=== PATIENT | female | born 1930 | race Caucasian/White ===

== ENCOUNTER 2016-08-12 09:07 | Day surgery (SDC) | payer MEDICARE, BC ==
[~2016-08-12 09:07] MED LIST: RINGERS SOLUTION,LACTATED 1,000 ML IV PRN; ceFAZolin SODIUM 1 GM VIAL IV PRN
[2016-08-12] MEDS ORDERED: BUPIVACAINE HCL 50 ML VIAL IJ ONE ×2 (11:00)
--- NOTE | 2016-08-12 11:22 | OR ---
Operative Report - Dictated Report Narrative: Date: 08/12/2016 Physician: Amos Archer M.D. Imposer: Antonio Yarbrough PA-C Preoperative diagnosis: Right carpal tunnel syndrome, right trigger thumb Postoperative diagnosis: Right carpal tunnel syndrome, right trigger thumb Procedure: Endoscopic right carpal tunnel release, right trigger thumb release Anesthesia: MAC plus local Complications: None Estimated blood loss: Minimal Tourniquet time: 13 Minutes at 250 mmHg Specimens: None Retained implants: None Drains: None Indications: Mrs. Landaverde Is a 66-year-old female who has been followed in my clinic with complaints of carpal tunnel syndrome and intermittent trigger thumb. Physical exam as well as diagnostic testing showed compression of the median nerve compatible with carpal tunnel syndrome. Kelly exam which also demonstrated a trigger fingering of the thumb. Conservative measures have failed including but not limited to activity modification, medications, and/or bracing. The risks, benefits, and alternatives were discussed in clinic. The risks being bleeding, infection, nerve, tendon, blood vessel injury, persistent pain, wound competitions, weakness, palm pain, need for additional procedures, and persistent symptoms. Consent was obtained in the clinic. Procedure: After marking the correct extremity in the preoperative holding area, a timeout was performed in the operating room. IV antibiotics consisting of Ancef were administered prior to the procedure. A well-padded tourniquet was applied to the operative upper arm. The arm was exsanguinated and the tourniquet was inflated to 250 mmHg. 0.5% Marcaine without epinephrine was infused into the projected portal sites. Using Loupe magnification, a transverse incision was made in the proximal wrist flexion crease just ulnar to the ulnar to the palmaris longus tendon or in line with approximately the ring finger. Blunt dissection and hemostasis with bipolar cautery was utilized down to the forearm fascia. The forearm fascia was split longitudinally just ulnar to the palmaris longus exposing the entry into the carpal tunnel. A Colby was placed under the transverse carpal ligament elevating the soft tissues under the dorsal aspect of the transverse carpal ligament. This was confirmed to be under the transverse carpal ligament based on the corrugated nature of the tissue. Once we had removed soft tissues from the transverse carpal ligament, a blunt trocar and cannula was introduced under the transverse carpal ligament exiting the palm through a niharika incision. The hand was then placed in a extension holding device and the camera was introduced into the cannula. A probe was utilized in order to ensure that all soft tissues were elevated off the dorsal aspect of the transverse carpal ligament and ensuring that all tissues were running transversely. No vascular or neurologic tissues were visualized. The push, followed by probe, followed by hook blades was utilized to transect the distal one half of the transverse carpal ligament. This allowed for ingress of fat. The camera was then placed distally looking proximally, and the proximal one half of the transverse carpal ligament was transected using the hook blade. This again allowed for ingress of fat. The probe blade was utilized in order to release any additional remaining fibers. Once it was felt that the transverse carpal ligament was completely transected, the blunt trocar was reintroduced into the trocar and removed in whole. A Ragnell was utilized in order to visualize the carpal tunnel ensuring that the transverse carpal ligament was completely released using a Colby. The distal forearm fascia was released ensuring that the median nerve was completely decompressed utilizing tenotomy scissors. Once it was felt that all the tissues overlying the median nerve were completely released, the wounds were thoroughly irrigated with saline which passed freely from the proximal to distal portal holes. 0.5% Marcaine without epinephrine was infused into the projected incision site at the palmar flexion crease over the metacarpal phalangeal joint in line with the digit. Using loupe magnification, a transverse incision in the appropriate palmar flexion crease in line with the digit. Blunt dissection was carried down through the subcutaneous tissues using bipolar cautery for hemostasis. Care was taken to protect the digital nerves. Staying midline along the flexor tendon, the A1 regan was identified. A niharika was made in the proximal edge of the A1 regan and tenotomies were utilized in order to completely transect the A1 regan. Care was to stay midline and avoid transection of the A2 regan. Soft tissues overlying the flexor tendon proximal to the A1 regan were also released ensuring that there were no other compressive structures contributing to the triggering. The finger was placed through range of motion and demonstrated no additional catching. The tendons were visualized and mobilized out of the wound, and did not demonstrate any gross pathology or masses that required debridement. The tendons were noted to be intact. Once was felt that we had decompressed the flexor tendons as they passed under the A1 regan, the tourniquet was removed. Once bleeding had resolved and there was no excessive bleeding, the wounds were closed with interrupted nylon. Xeroform, 4 x 4's, soft roll, and a well-padded dorsal short arm wrist splint was applied, and the patient was awoken and transferred to the postanesthesia care unit in stable condition. All sponge, needle, blade, and instrument counts were correct prior to closing the wounds. Additional 0.5% Marcaine without epinephrine was infused into the skin edges for pain control.
[2016-08-12 12:17] VITALS: BP 117/71
== END 2016-08-12 09:08 | disposition home or self-care (01) ==
LOC: AMB 09:07
PROVIDERS: ATTEND Orthopaedic Surgery
PROC: 01N54ZZ Release Median Nerve, Percutaneous Endoscopic Approach (ICD-10-PCS; principal; 2016-08-12 11:30)
PROC: 0LN70ZZ Release Right Hand Tendon, Open Approach (ICD-10-PCS; 2016-08-12 11:30)
DX: G56.01 Carpal tunnel syndrome, right upper limb (principal); M65.311 Trigger thumb, right thumb; I10 Essential (primary) hypertension; E78.5 Hyperlipidemia, unspecified; K21.9 Gastro-esophageal reflux disease without esophagitis; Z87.891 Personal history of nicotine dependence; Z68.30 Body mass index [BMI] 30.0-30.9, adult

== ENCOUNTER 2019-08-29 10:52 | Inpatient (IN) ==
[2019-08-29] MEDS ORDERED: hydrALAZINE HCL 20 MG/ML VIAL IV PRN (15:59)
[2019-08-29] MEDS: NORMAL SALINE 1,000 ML IV PRN (17:46)
[2019-08-29] MEDS: ONDANSETRON HCL/PF 2 MG/ML VIAL IV PRN (17:47)
[2019-08-30] MEDS: ONDANSETRON HCL/PF 2 MG/ML VIAL IV PRN ×3 (00:55→17:51)
[2019-08-30] MEDS: NORMAL SALINE 1,000 ML IV PRN ×3 (01:48→16:38)
[2019-08-30] MEDS ORDERED: MORPHINE SULFATE 2 MG/ML DISP.SYRIN IV PRN (06:13)
--- NOTE | 2019-08-30 11:06 | PN ---
Jimbo Note - Interim Date: 08/29/19 Time: 23:15 Narrative: 08/29/19 @ 2315 Patient is a direct admit from clinic today after she came to see Dr. Florian for a sick visit. Patient admitted for possible small bowel obstruction, agree with Dr. Florian's note and will be using his clinic visit note as my H&P for initial encounter. Orders are placed and will follow patient while she is here on the inpatient side. Patient seen in the hospital this evening and was stable, feeling better, and her abdominal pain/nausea had resolved. Otherwise I feel Dr. Florian's note was accurate and reflected my exam performed on patient.
[2019-08-30 18:31] LABS: Anion Gap 10.7 mmol/L (6.8-13.8); BUN/Creatinine Ratio 23.4 (9.0-21.6); Calcium * 8.7 mg/dL (7.9-10.9); Carbon Dioxide 24.9 mmol/L (24-32.6); Estimated Creat Clear 39.2; Potassium 3.6 mmol/L (3.4-4.6)
--- NOTE | 2019-08-30 21:37 | PN ---
Subjective - Date and Time Seen Date: 08/30/19 Time: 09:21 Subjective Narrative: Patient states that she feels much better today, no longer having any abdominal pain. NG tube put out roughly 500 mls overnight. Currently putting out minimal. Abdominal XR shows tube to be a the EG junction and may need to be advanced further since her output has decreased. She afebrile and her VSS since admission. Objective - Review of Systems Generalized/Overall Review: Denies: Chills, Fever, Malaise EENTM: Reports: No Symptoms Reported Respiratory: Denies: Cough, Shortness of Breath Cardiac: Denies: Chest Pain, Palpitations Abdominal: Denies: Nausea, Vomiting, Abdominal Pain Genitourinary Symptoms: Reports: No Symptoms Reported Musculoskeletal Complaints: Reports: No Symptoms Reported Skin: Reports: No Symptoms Reported - Vitals Vitals: Last Vital Signs Temp 36.8 C 08/30/19 21:18 Pulse 64 08/30/19 21:18 Resp 18 08/30/19 21:18 BP 129/63 08/30/19 21:18 Pulse Ox 96 08/30/19 21:18 - Abnormal Lab Findings Abnormal Lab Findings: Abnormal Lab Results 08/30/19 Range/Units 17:30 BUN/Creatinine Ratio 23.4 H (9.0-21.6) Random Glucose 133 H (70-110) mg/dL - Exam Constitutional: Present: Alert, Oriented x3, Cooperative, Well developed ENT Exam: Present: hearing grossly normal, other - NG tube placed Neck: Present: non-tender, full range of motion Respiratory: Present: lungs clear, normal breath sounds, no respiratory distress Cardiovascular/Chest: Present: regular rate, rhythm, no murmur Abdomen: Present: soft, nontender, nondistended, hypoactive Skin Exam: Present: normal color, warm/dry Appearance: Present: appropriate appearance, appropriate insight Eye contact: Present: cooperative, good eye contact Thoughts: Present: normal thought pattern, normal mood /affect Assessment/Plan Plan Narrative: 89 y/o female admitted for SBO who did well overnight without any acute events. She currently is comfortable and denies any abdominal pain. Her belly is soft and non distended. She currently has Ng tube placed, but is pulling out minimal content. Will advance the tube 4 cm and and aspirate to see if any return. If not, then will likely clamp the tube and encourage ambulation since she is so comfortable currently. If she starts passing gas then will likely advance her diet as tolerated. Will leave tube in for time being. Continue holding chronic medications until SBO relieved. Hydralazine as needed for SBP >170 SCDs on while in bed Nurse to call with any questions or concerns. - Problems/Diagnosis (1) Small bowel obstruction, partial Problem: Acute (2) HTN (hypertension) Problem: Chronic
[2019-08-30] MEDS ORDERED: MORPHINE SULFATE 10 MG/ML SYRG IV ONE (23:30)
[2019-08-30] MEDS ORDERED: MORPHINE SULFATE 4 MG/ML SYRG IV PRN (23:31)
[2019-08-30] MEDS ORDERED: ONDANSETRON HCL/PF 2 MG/ML VIAL IV PRN (23:33)
[2019-08-30] MEDS ORDERED: IBUPROFEN 800 MG TABLET PO ONE (23:40)
[2019-08-31] MEDS ORDERED: IBUPROFEN 800 MG TABLET PO PRN (09:36)
[2019-08-31] MEDS ORDERED: NON-FORMULARY 1 DOSE DOSE TP PRN (09:38)
[2019-08-31] MEDS: PHENOL 180 SPRAY BTL MM PRN (17:16)
--- NOTE | 2019-08-31 21:30 | PN ---
Subjective - Date and Time Seen Date: 08/31/19 Time: 13:30 Subjective Narrative: Patient was doing well, had no acute events overnight. Had previously been clamped and had tolerated clears. She was passing gas the day before and last night. She denied abdominal pain. She has been ambulating. Her vital signs been stable she been afebrile. At 12:00 this afternoon though patient developed nausea. She was not having any more abdominal pain, her belly was not dist ended. NG tube was unclamped and set back to low intermittent suction and she had close to 300 cc of nasogastric contents removed fairly quickly while I was in the room examining her. Objective - Review of Systems Generalized/Overall Review: Denies: Weakness, Chills, Fever EENTM: Reports: No Symptoms Reported Respiratory: Denies: Cough, Shortness of Breath Cardiac: Denies: Chest Pain, Palpitations Abdominal: Reports: Nausea, Constipation. Denies: Vomiting, Abdominal Pain Genitourinary Symptoms: Reports: No Symptoms Reported Musculoskeletal Complaints: Reports: No Symptoms Reported Neurological: Reports: No Symptoms Reported Skin: Reports: No Symptoms Reported Endocrine: Reports: No Symptoms Reported - Vitals Vitals: Last Vital Signs Temp 36.6 C 08/31/19 18:29 Pulse 73 08/31/19 18:29 Resp 21 H 08/31/19 18:29 BP 146/65 08/31/19 18:29 Pulse Ox 95 08/31/19 18:29 - Exam Constitutional: Present: Alert, Oriented x3, Elderly ENT Exam: Present: hearing grossly normal Breasts: Present: Exam deferred Respiratory: Present: lungs clear, normal breath sounds, no respiratory distress Cardiovascular/Chest: Present: regular rate, rhythm, no murmur Abdomen: Present: soft, nontender, nondistended, hypoactive Neurologic: Present: alert, normal mood/affect, oriented x 3 Appearance: Present: appropriate appearance, appropriate insight Eye contact: Present: cooperative, good eye contact Assessment/Plan Plan Narrative: 89 y/o female admitted for SBO who did well overnight without any acute events. She was tolerating clears and had passed gas a few times. Still not had a bowel movement. She had ambulated 3-4 times this morning. NG tube is been clamped overnight but was unclamped and set back to low intermittent suction earlier this afternoon after she developed some nausea. Her belly is still soft and non distended. Discussed the case with Dr. Nielsen who felt like her tube could be clamped again and her be given a dose of MiraLAX as well as a suppository. Will wait and see how much nasogastric content she continues to pull out before I clamped the tube again. We will restart her IV fluids at 125 mls/hr of D5 half- normal. Continue clears even with the NG tube placed. Continue holding chronic medications until SBO relieved. Hydralazine as needed for SBP >170 SCDs on while in bed, continue ambulation. Nurse to call with any questions or concerns. - Problems/Diagnosis (1) Small bowel obstruction, partial Problem: Acute (2) HTN (hypertension) Problem: Chronic
[2019-08-31] MEDS ORDERED: BISACODYL 10 MG SUPP.RECT RC ONE (22:00)
[2019-08-31] MEDS: DEXTROSE 5%-0.5 NORMAL SALINE 1,000 ML IV PRN (22:11)
[2019-09-01] MEDS: PHENOL 180 SPRAY BTL MM PRN (06:01)
[2019-09-01] MEDS: DEXTROSE 5%-0.5 NORMAL SALINE 1,000 ML IV PRN (06:01)
[2019-09-01 13:51] VITALS: BP 134/72
--- NOTE | 2019-09-01 14:03 | DS ---
Transfer Discharge Summary - Diagnosis(s)/Problems (1) Small bowel obstruction, partial Problem: Acute (2) HTN (hypertension) Problem: Chronic (3) Hx of abdominal surgery Problem: Chronic - Course Description of Stay: 89-year-old male who developed abdominal pain with nausea vomiting on 08/29 presented to the clinic where she saw her PCP. CT scan of her belly was ordered by him which showed possible partial small bowel obstruction. Patient was direct admitted for bowel rest and decompression. Nasogastric tube was inserted, placement confirmed by x-ray. Roughly 500 cc of nasogastric content was removed that night. The next day she denied abdominal pain, her belly was nondistended, she was starting to pass gas. She was able to clamp the tube and ambulate multiple times throughout the day. Patient was feeling much better by that evening. Patient was started on clears which she tolerated well, diet was advanced to full liquids and she tolerated applesauce and Jell-O. No acute events over the night. Did well the following morning where she was able again to ambulate and continue to have her nasogastric tube clamped. Right around noon on the patient developed nausea with vomiting but denies abdominal pain again. Nasogastric tube set back up to suction, she is roughly had 1800 cc of nasogastric content removed over the last 24 hours. Discussed the case with our surgeon yesterday who felt like it was possibly just a constipation issue and some MiraLAX and rectal suppository might fix the problem. Patient was unable to have her NG tube clamped though due to excessive amount of gastric content being evacuated. Today Dr. Nielsen my general surg came over to review CT scan with me again which he was concerned for possible hernia in her belly which may be causing the obstruction. He felt it would be better if she was transferred to a facility with an ICU in case she did require surgery as she is now going on her fourth day of not being able to eat or pass gas. She did have 2 small bowel movements following rectal suppository though. While here her vital signs been stable and she been afebrile. Blood pressures been well controlled with 10 mg of IV hydralazine as needed. [facility] called and case discussed with him, he has accepted her in transfer will begin shortly. Procedures Performed: none - Medications Medications: Active Medications Dextrose/Sodium Chloride (Dextrose 5%-0.45%Ns) 1,000 mls @ 125 mls/hr IV .Q8H PRN PRN Reason: HYDRATION Stop: 09/30/19 21:35 Last Admin: 09/01/19 06:01 Dose: 125 mls/hr Documented by: Ibuprofen (Motrin) 800 mg PO Q6H PRN PRN Reason: Pain Stop: 09/30/19 09:37 Last Admin: 08/31/19 10:52 Dose: 800 mg Documented by: Morphine Sulfate (Morphine Sulfate) 2 mg IV Q2H PRN PRN Reason: Pain Stop: 09/29/19 06:14 Last Admin: 08/30/19 06:53 Dose: 2 mg Documented by: Non-Formulary Medication (Non Formulary Drug) 1 dose TP Q12H PRN PRN Reason: Pain Stop: 09/30/19 09:46 Last Admin: 08/31/19 10:43 Dose: 1 dose Documented by: Ondansetron HCl (Zofran) 4 mg IV Q6H PRN PRN Reason: Nausea And Vomiting Stop: 09/28/19 17:31 Last Admin: 08/30/19 17:51 Dose: 4 mg Documented by: Phenol/Menthol (Chloraseptic) 1 spray MM PRN PRN PRN Reason: Sore Throat Stop: 09/28/19 16:01 Last Admin: 09/01/19 06:01 Dose: 1 spray Documented by: Discontinued Medications Bisacodyl (Dulcolax Suppository) 10 mg RC ONCE ONE Stop: 08/31/19 22:01 Last Admin: 08/31/19 22:11 Dose: 10 mg Documented by: Sodium Chloride (Sodium Chloride 0.9%) 1,000 mls @ 125 mls/hr IV .Q8H PRN PRN Reason: HYDRATION Stop: 09/28/19 17:31 Last Infusion: 08/31/19 00:08 Dose: Infused Documented by: Ibuprofen (Motrin) 800 mg PO ONCE ONE Stop: 08/30/19 23:41 Last Admin: 08/31/19 00:08 Dose: 800 mg Documented by: Morphine Sulfate (Morphine Sulfate) 5 mg IV ONCE ONE Stop: 08/30/19 23:31 Last Admin: 08/30/19 23:42 Dose: Not Given Documented by: - Disposition Disposition: Short Term Hospital Inpatient Condition: Serious Discharge Date: 09/01/19 Discharge Time: 14:13
== END 2019-09-01 14:45 | disposition short-term general hospital (02) | DRG 390 ==
LOC: CCFAL → MS 15:42 → INTOOBSV 15:42
PROVIDERS: ADMIT Family Medicine; ATTEND Family Medicine
CPT/HCPCS: 36415; 71010; 71045; 80048; J2405